=== PATIENT | female | born 1965 | race Caucasian/White ===

== ENCOUNTER 2016-09-25 08:50 | Inpatient (IN) | payer BC ==
[2016-09-25] VITALS (30 sets, daily range): BP systolic 122–206; BP diastolic 62–117
[~2016-09-25] VITALS: Ht 165.1 cm; Wt 183.1 kg
[~2016-09-25 08:50] MED LIST: ASPIRIN EC81 MG PO; ATENOLOL25 MG PO; BENAZEPRIL10 MG PO; CIPRO500 MG OR; FERREX 150150 MG OR; FERROUS SULF325 M1 PO; IRON27 MG PO; IRON325 MG OR; LASIX 20 MG TAB20 MG PO; LEVOTHYROXIN200 MC2 PO; LOTENSIN HCT1 TA2 OR; LOTENSIN HCT1 TAB OR; NORVASC10 M1 PO; PRAVASTATIN SOD20 MG PO; SYNTHROID100 MCG OR
[2016-09-25] MEDS ORDERED: KLOR-CON 1010 MEQ PO (09:18)
[2016-09-25] MEDS ORDERED: PROCARDIA XL30 MG PO (09:20)
[2016-09-25] MEDS ORDERED: LASIX 20 MG20 MG/TAB PO (09:21)
[2016-09-25] MEDS ORDERED: VASOTEC5 MG PO (09:22)
[2016-09-25] MEDS ORDERED: IRON27 MG PO (09:23)
[2016-09-25 09:37] LABS: HEMATOCRIT 50.2 % (37.0-47.0); HEMOGLOBIN 15.7 g/dl (12.0-16.0); IMMATURE GRANULOCYTES 0.2 % (0.0-1.0); MEAN CORPUSCULAR HGB 28.1 pG CALC (26.0-32.0); MEAN CORPUSCULAR HGB CONC 31.3 g/L CALC (32.0-36.0); NEUT# 2.67 thou/uL (2.00-7.15); RED BLOOD COUNT 5.58 mill/uL (4.20-5.60); RED CELL DISTRI WIDTH 17.6 % (11.5-15.5)
[2016-09-25 09:57] LABS: ALBUMIN 4.4 g/dL (3.2-5.0); ALKALINE PHOSPHATASE 67 u/l (38-126); ANION GAP 17 (6-22 (CALC)); BILIRUBIN, TOTAL 1.2 mg/dL (0.0-1.4); BUN 22 mg/dL (7-17); BUN/CREATININE RATIO 11 (12-20 (CALC)); CALCIUM 9.4 mg/dL (8.4-10.2); CARBON DIOXIDE 31 mmol/l (22-30); CHLORIDE 103 mmol/l (95-108); GFR 26 ML/MIN (>=60 (CALC)); GFR FOR AFR.AMER. 32 ML/MIN (>=60 (CALC)); GLUCOSE 105 mg/dL (65-105); POTASSIUM 3.9 mmol/l (3.5-5.1); SGOT/AST 37 u/l (14-36); SGPT/ALT 39 u/l (9-52); SODIUM 146 mmol/l (137-146); TOTAL PROTEIN 7.8 g/dL (6.3-8.2)
[2016-09-25 10:05] LABS: D-DIMER 0.78 mg/L (0.19-0.60); INTERNATIONAL NORMALIZED RATIO 1.1 RATIO (0.7-1.3); PROTHROMBIN TIME 11.5 SECONDS (9.0-12.5)
[2016-09-25 10:09] LABS: MYOGLOBIN 253 ng/mL (0 - 62)
[2016-09-25 11:39] LABS: URINE BILIRUBIN - DIPSTICK NEGATIVE (NEGATIVE); URINE BLOOD DIPSTICK SMALL (NEGATIVE); URINE COLOR YELLOW; URINE GLUCOSE - DIPSTICK NEGATIVE (NEGATIVE); URINE KETONE NEGATIVE (NEGATIVE); URINE LEUK ESTERASE NEGATIVE (NEGATIVE); URINE NITRITE - DIPSTICK NEGATIVE (Negative); URINE PROTEIN - DIPSTICK >=300 mg/dL (NEG-TRACE); URINE UROBILINOGEN - DIPSTICK 0.2 E.U./dL (0.2)
[2016-09-25 11:40] LABS: URINE BACTERIA FEW hpf; URINE CLARITY SLIGHT CLOUDY; URINE EPITHELIAL CELLS FEW EPI/hpf (0-FEW); URINE MUCUS MODERATE hpf (NONE-FEW); URINE WBC 0-2 WBC/hpf (0-5)
[2016-09-25 17:30] LABS: CHOLESTEROL HDL RATIO 5.6 (<4.4 (CALC))
[2016-09-26] VITALS (31 sets, daily range): BP systolic 137–173; BP diastolic 71–99
[2016-09-26 05:21] LABS: HEMATOCRIT 50.2 % (37.0-47.0); HEMOGLOBIN 15.4 g/dl (12.0-16.0); IMMATURE GRANULOCYTES 1.1 % (0.0-1.0); MEAN CELL VOLUME 90.9 fL CALC (80.0-100.0); MEAN CORPUSCULAR HGB 27.9 pG CALC (26.0-32.0); MEAN CORPUSCULAR HGB CONC 30.7 g/L CALC (32.0-36.0); NEUT# 6.02 thou/uL (2.00-7.15); RED BLOOD COUNT 5.52 mill/uL (4.20-5.60); RED CELL DISTRI WIDTH 17.5 % (11.5-15.5)
[2016-09-26 05:27] LABS: CALCIUM 8.9 mg/dL (8.4-10.2); POTASSIUM 4.1 mmol/l (3.5-5.1)
[2016-09-26 09:19] LABS: TSH, 3RD GENERATION 43.3 uIU/mL (0.47 - 4.68)
[2016-09-27] VITALS (12 sets, daily range): BP systolic 158–186; BP diastolic 86–99
[2016-09-27 05:34] LABS: CALCIUM 8.9 mg/dL (8.4-10.2); CREATININE 2.3 mg/dL (0.5-1.0); POTASSIUM 4.1 mmol/l (3.5-5.1)
[2016-09-27 05:42] LABS: HEMATOCRIT 54.9 % (37.0-47.0); HEMOGLOBIN 16.4 g/dl (12.0-16.0); IMMATURE GRANULOCYTES 0.4 % (0.0-1.0); MEAN CELL VOLUME 93.1 fL CALC (80.0-100.0); MEAN CORPUSCULAR HGB 27.8 pG CALC (26.0-32.0); MEAN CORPUSCULAR HGB CONC 29.9 g/L CALC (32.0-36.0); NEUT# 4.87 thou/uL (2.00-7.15); RED BLOOD COUNT 5.9 mill/uL (4.20-5.60); RED CELL DISTRI WIDTH 18.5 % (11.5-15.5)
[2016-09-28] VITALS (13 sets, daily range): BP systolic 106–190; BP diastolic 74–98
[2016-09-28 05:48] LABS: CALCIUM 8.9 mg/dL (8.4-10.2); CREATININE 2.2 mg/dL (0.5-1.0); POTASSIUM 4.1 mmol/l (3.5-5.1)
[2016-09-28 09:33] LABS: HEMATOCRIT 54.7 % (37.0-47.0); HEMOGLOBIN 16.4 g/dl (12.0-16.0); IMMATURE GRANULOCYTES 0.4 % (0.0-1.0); MEAN CELL VOLUME 92.4 fL CALC (80.0-100.0); MEAN CORPUSCULAR HGB 27.7 pG CALC (26.0-32.0); NEUT# 6.52 thou/uL (2.00-7.15); RED BLOOD COUNT 5.92 mill/uL (4.20-5.60); RED CELL DISTRI WIDTH 18.4 % (11.5-15.5)
== END 2016-09-29 00:17 | disposition short-term general hospital (02) | DRG 304 ==
LOC: ED 08:50 → ED-I 10:12 → ED 14:37 → ICU 14:38
PROVIDERS: Emergency Medicine; Internal Medicine; Nurse Practitioner Family; ADMIT Internal Medicine; ATTEND Internal Medicine
PROC: 0T9B70Z Drainage of Bladder with Drainage Device, Via Natural or Artificial Opening (ICD-10-PCS; 2016-09-25)
PROC: 3E0234Z Introduction of Serum, Toxoid and Vaccine into Muscle, Percutaneous Approach (ICD-10-PCS; principal; 2016-09-27)
DX: I16.0 Hypertensive urgency (principal); J96.22 Acute and chronic respiratory failure with hypercapnia; J96.21 Acute and chronic respiratory failure with hypoxia; I13.10 Hypertensive heart and chronic kidney disease without heart failure, with stage 1 through stage 4 chronic kidney disease, or unspecified chronic kidney disease; E66.2 Morbid (severe) obesity with alveolar hypoventilation; I31.3 Pericardial effusion (noninflammatory); Z68.44 Body mass index [BMI] 60.0-69.9, adult; N18.3 Chronic kidney disease, stage 3 (moderate); E78.5 Hyperlipidemia, unspecified; E03.9 Hypothyroidism, unspecified; K21.9 Gastro-esophageal reflux disease without esophagitis; Z23 Encounter for immunization; Z91.14 Patient's other noncompliance with medication regimen
CPT/HCPCS: A9540; A9567; S0164